=== PATIENT | female | born 1970 | race Caucasian/White ===

== ENCOUNTER → 2018-04-21 | Outpatient (CLI) | payer BC, OTHER ==
[~2018-04-21] MED LIST: BIRTH CONTROL; CITRATE OF MAG296 ML PO; COLACE100 MG PO
== END ==
LOC: ULTRA 08:33
DX: K80.20 Calculus of gallbladder without cholecystitis without obstruction (principal)

== ENCOUNTER → 2021-05-11 | Outpatient (CLI) | payer OTHER | LOC: CAT 14:52 | PROVIDERS: ATTEND Family Medicine | DX: K57.32 Diverticulitis of large intestine without perforation or abscess without bleeding (principal); K76.89 Other specified diseases of liver; R10.32 Left lower quadrant pain; R50.9 Fever, unspecified; Z90.49 Acquired absence of other specified parts of digestive tract ==